=== PATIENT | male | born 1950 | race Caucasian/White ===

== ENCOUNTER 2023-01-12 14:47 | Emergency (ER) | payer MEDICARE, SELFPAY ==
[2023-01-12 15:01] VITALS: BP 123/84; PULSE 98; RESP 15; TEMP 36.8; O2SAT 99; BMI 25.8
[2023-01-12 16:49] LABS: Basophils % 0.3 %; Eosinophils # 0.1 10^3/uL (0.0-0.8); Eosinophils % 1.4 %; Hematocrit 39.4 % (42.0-52.0); Hemoglobin 14.4 g/dL (11.7-16.6); Lymphocytes # 0.7 10^3/uL (0.8-4.8); Lymphocytes % 11.3 %; Mean Corpuscular HGB Conc 36.5 g/dL (30.0-36.0); Mean Corpuscular Hemoglobin 32.7 pg (28.0-34.0); Mean Corpuscular Volume 89.3 fl (80-94); Monocytes # 0.7 10^3/uL (0.2-0.9); Monocytes % 11.8 %; Neutrophils # 4.39 10^3/uL (1.8-7.7); Neutrophils % 74.9 %; Nucleated Red Blood Cells % 0 %; Platelet Count 207 10^3/cmm (130-400); Red Blood Count 4.41 10^6/uL (4.1-5.3); Red Cell Distribution Width 11.7 % (12.1-15.1); White Blood Count 5.9 10^3/uL (4.0-10.0)
[2023-01-12 17:07] LABS: INR 0.89 (0.8-1.2)
--- NOTE | 2023-01-12 17:07 | ECG_ITS ---
[facility] Test Date: 2023-01-12 Pat Name: Ugo Stiles Department: Room: Gender: Male Soap Boiler: : 1950 Requested By: Polo Mcintosh Order Number: [id number] Dimple MD: Duane Hdez M.D. Measurements Intervals [place] Rate: 101 P: 59 MD: 124 QRS: 15 QRSD: 157 T: 24 QT: 433 QTc: 563 Interpretive Statements SINUS TACHYCARDIA RIGHT BUNDLE BRANCH BLOCK [120+ ms QRS DURATION, UPRIGHT V1, 40+ ms S IN I/aVL/V4/V5/V6] No previous ECG available for comparison Electronically Signed On 01-13-2023 18:14:55 MACHINED [employer]S METAL SPRAYER by Duane Hdez M.D. [id number]
--- NOTE | 2023-01-12 17:11 | DCPLANNER ---
Addendum entered by Darleen Hernández 01/14/23 13:12: 01-12-23 [facility] called back stating no beds [facility] - patients information was faxed at [phone] - declined due to his alcoholism [facility] - patients information was faxed at [phone] [facility] - patients information was faxed at [phone] Original Note: print manager was asked to look for [place] [facility] placement for patient. print manager called and faxed patients information to the following facilities looking for placement: [facility] - 1710 - [facility] - can fax information [facility] - 164 - Char[facility] - can fax information [facility] - patient to old [facility] - 171 - Malorie - can fax information [facility] - 171 - [place] - no beds [facility] - 171 - Ileana - can fax information - patient will be put on a waiting list [facility] - 1714 - Leonor - no beds [facility] - 1715 - Ele[place] -no beds [facility] - 171 - Jerana - no beds [facility] - 1717 - Pretty - no beds [facility] - 172 - no beds
[2023-01-12 17:25] LABS: Acetaminophen < 5.0 ug/mL (10-30); Alanine Aminotransferase 20 U/L (0-41); Albumin Level 4.2 g/dL (3.5-5.2); Alcohol Level < 10 mg/dL (0-10); Alkaline Phosphatase 90 U/L (40-130); Anion Gap 18.9 (5-19); Aspartate Amino Transferase 20 U/L (0-40); Blood Urea Nitrogen 11 mg/dL (8-23); Calcium 9.3 mg/dL (8.5-10.5); Carbon Dioxide 25 mmol/L (22-29); Chloride 95 mmol/L (98-107); Creatinine Clr Calc Pharmacy 81.8003; Globulin 2.5 g/dL (1.3-4.6); Glomerular Filtration Rate 111.5 mL/min (90-130); Glucose 86 mg/dL (65-115); Osmolality Calculated 279 mOsm/kg (285-295); Potassium 3.9 mmol/L (3.5-5.1); Salicylate < 0.3 mg/dL (3-10); Sodium 135 mmol/L (136-145); Thyroid Stimulating Hormone 2.11 uIU/mL (0.27-4.20); Total Bilirubin 0.6 mg/dL (0.15-1.2); Total Protein 6.7 g/dL (6.6-8.7)
--- NOTE | 2023-01-12 17:31 | ED.C_ITS ---
Documented by User: Polo Zuniga DO 01/15/23 14:27 HPI - Psych General: Chief Complaint: Psychiatric Symptoms Stated Complaint: psych eval Time Seen by Provider: 01/12/23 15:46 Source: patient Mode of arrival: ambulatory History of Present Illness: 72-year-old male who presents to the emergency room accompanied by 2 family members. Patient was incarcerated for the last 10 days for DWI. He does not seem to recall this to well. He has been having some auditory and visual hallucinations. He was on clonazepam and stopped taking it suddenly when he was incarcerated. He has not taken any for the last 10 days he is having hallucinations still today. He denies any homicidal or suicidal lissette ation. Patient cannot recall a lot of the details around where he was or why he was there. He admits to drinking denies any history of cirrhosis or upper GI bleeds. He has had multiple DUIs in the past. He states he only drinks 2-4 beers per night. Last drink was reported to have been 10 days ago. He had no tremors or withdrawal seizures when he stopped drinking. MD complaint: suicidal ideation Onset (ago): minute(s) Duration: constant History of same: Yes Relieving factors: none Exacerbating factors: none Associated psychiatric symptoms: depression, auditory hallucinations and visual hallucinations Associated symptoms: Reports auditory hallucinations and visual hallucinations Treatments prior to arrival: none Review of Systems Const: Denies: fever(s), chills, body aches, change in appetite, fatigue or malaise ENMT: Denies: throat pain, ear or mastoid pain, nasal discharge or nasal congestion Card: Denies: chest pain, edema, dyspnea on exertion or orthopnea Resp: Denies: dyspnea, productive cough or non-productive cough GI: Denies: abdominal pain, nausea, vomiting, hematemesis, coffee ground emesis, diarrhea, constipation, bloating, hematochezia or melena : Denies: flank pain, dysuria, urinary frequency or urinary urgency Skin/Breast: Denies: rash or pruritus Psych: Reports: visual hallucinations and auditory hallucinations [facility] ED PFSH: Social History (Updated 01/12/23 @ 17:36 by Polo Zuniga DO) Smoking and tobacco status: current every day smoker Alcohol intake: current Alcohol intake frequency: 3 or more drinks per day Physical Exam Const: GENERAL APPEARANCE: cooperative and comfortable ORIENTATION/CONSCIOUSNESS: Yes awake, Yes oriented to person, Yes oriented to place and Yes oriented to time HENMT: COMMON NORMALS: normocephalic, atraumatic and hearing grossly normal bilaterally HEAD & SCALP: normocephalic and atraumatic Resp: COMMON NORMALS: normal respiratory effort, No retractions, No use of accessory muscles and clear to auscultation bilaterally AUSCULTATION: clear to auscultation bilaterally Cardio: COMMON NORMALS: regular rate, regular rhythm and No murmurs present (Cardio) RATE: regular rate RHYTHM: regular rhythm GI: COMMON NORMALS: Soft to palpation and No hepatosplenomegaly present AUSCULTATION: Yes normoactive bowel sounds PALPATION: Yes Soft to palpation, No Tenderness to palpation present (GI), No Guarding due to palpation present (GI) and Yes No hepatosplenomegaly present Extremity: COMMON NORMALS: normal to inspection, capillary refill normal, no clubbing, cyanosis or edema, no calf tenderness and no pedal edema Neuro: SENSORIUM/ORIENTATION: Yes oriented to person, Yes oriented to place and Yes oriented to time Skin: COMMON NORMALS: no rashes or lesions noted GENERAL SKIN EXAM: no rashes or lesions noted Course Vital Signs: Vital signs: Vital Signs Temperature 97.6 F 01/13/23 23:03 Pulse Rate 112 H 01/15/23 09:02 Respiratory Rate 16 01/15/23 09:02 Blood Pressure 145/86 01/15/23 09:02 Pulse Oximetry 97 01/15/23 09:02 Oxygen Delivery Me thod 01/15/23 09:02 [facility] - Psych Medical Decision Making Patient is 10 days out from his last use of clonazepam or alcohol. No believe his symptoms are directly due to acute withdrawal he is through the delirium tremor portion of alcohol withdrawal at this point and has not had any seizures. I do think it is related to his long-term use of both medications and now he is having psychosis which may last for some time he should be restarted on some of his medications. We initially had begun looking for a place to transfer the patient to however several declined to take him. I talked to her psychiatrist that her psychiatrist see him he concurs there is an aspect of acute psychosis with delirium and he will require inpatient medication initiation please see his consultation report. Patient is excepted to [facility] likely transfer in the morning patient is medically cleared. Patient continues to have hallucinations but remains stable. [facility] in good condition. Medical Records I reviewed the patient's medical records. Lab Data I reviewed the patient's lab results. 01/12/23 16:35 01/12/23 16:35 Radiology Impressions Chest X-Ray 01/12/23 18:56 IMPRESSION: 1. Negative for infiltrate. 2. Right upper lobe benign pleural calcification. Laboratory Results WBC 5.9 10^3/uL (4.0-10.0) 01/12/23 16:35 RBC 4.41 10^6/uL (4.1-5.3) 01/12/23 16:35 Hgb 14.4 g/dL (11.7-16.6) 01/12/23 16:35 Hct 39.4 % (42.0-52.0) L 01/12/23 16:35 MCV 89.3 fl (80-94) 01/12/23 16:35 MCH 32.7 pg (28.0-34.0) 01/12/23 16:35 MCHC 36.5 g/dL (30.0-36.0) H 01/12/23 16:35 RDW 11.7 % (12.1-15.1) L 01/12/23 16:35 Plt Count 207 10^3/cmm (130-400) 01/12/23 16:35 MPV 10.0 fL (7.4-10.4) 01/12/23 16:35 Neut % (Auto) 74.9 % 01/12/23 16:35 Lymph % (Auto) 11.3 % 01/12/23 16:35 [place] % (Auto) 11.8 % 01/12/23 16:35 Eos % (Auto) 1.4 % 01/12/23 16:35 Baso % (Auto) 0.3 % 01/12/23 16:35 Neut # (Auto) 4.39 10^3/uL (1.8-7.7) 01/12/23 16:35 Lymph # (Auto) 0.7 10^3/uL (0.8-4.8) L 01/12/23 16:35 [place] # (Auto) 0.7 10^3/uL (0.2-0.9) 01/12/23 16:35 Eos # (Auto) 0.1 10^3/uL (0.0-0.8) 01/12/23 16:35 Baso # (Auto) 0.0 10^3/uL (0.0-0.1) 01/12/23 16:35 Nucleated RBC % (auto) 0 % 01/12/23 16:35 Nucleated RBCs # 0.0 /100WBC 01/12/23 16:35 PT 12.40 SECONDS (12.1-14.9) 01/12/23 16:35 INR 0.89 (0.8-1.2) 01/12/23 16:35 Sodium 135 mmol/L (136-145) L 01/12/23 16:35 Potassium 3.9 mmol/L (3.5-5.1) 01/12/23 16:35 Chloride 95 mmol/L (98-107) L 01/12/23 16:35 Carbon Dioxide 25 mmol/L (22-29) 01/12/23 16:35 Anion Gap 18.9 (5-19) 01/12/23 16:35 BUN 11 mg/dL (8-23) 01/12/23 16:35 Creatinine 0.7 mg/dL (0.7-1.2) 01/12/23 16:35 GFR Calculation 111.5 mL/min (90-130) 01/12/23 16:35 Glucose 86 mg/dL (65-115) 01/12/23 16:35 Calculated Osmolality 279 mOsm/kg (285-295) L 01/12/23 16:35 Calcium 9.3 mg/dL (8.5-10.5) 01/12/23 16:35 Total Bilirubin 0.6 mg/dL (0.15-1.2) 01/12/23 16:35 AST 20 U/L (0-40) 01/12/23 16:35 ALT 20 U/L (0-41) 01/12/23 16:35 Alkaline Phosphatase 90 U/L (40-130) 01/12/23 16:35 Total Protein 6.7 g/dL (6.6-8.7) 01/12/23 16:35 Albumin 4.2 g/dL (3.5-5.2) 01/12/23 16:35 Globulin 2.5 g/dL (1.3-4.6) 01/12/23 16:35 TSH 2.11 uIU/mL (0.27-4.20) 01/12/23 16:35 Free T4 1.48 ng/dL (0.82-1.77) 01/12/23 16:03 Free T3 2.6 PG/ML (2.0-4.4) 01/12/23 16:03 Urine Color Yellow (Yellow) 01/12/23 19:46 Urine Appearance Clear (CLEAR) 01/12/23 19:46 Urine pH 6 (5-7) 01/12/23 19:46 Ur Specific [place] 1.025 (1.005-1.030) 01/12/23 19:46 Urine Protein Trace (Negative) 01/12/23 19:46 Urine Glucose (UA) Norm (Normal) 01/12/23 19:46 Urine Ketones 2+ (Negative) H 01/12/23 19:46 Urine Blood Neg (Negative) 01/12/23 19:46 Urine Nitrate Negative (Negative) 01/12/23 19:46 Urine Bilirubin 1+ (Negative) H 01/12/23 19:46 Urine Urobilinogen 1 mg/dL (Negative) H 01/12/23 19:46 Ur Leukocyte Esterase Negative (Negative) 01/12/23 19:46 Urine RBC 0-4 /hpf (0-2) H 01/12/23 19:46 Urine WBC 0-4 /hpf (0-5) H 01/12/23 19:46 Ur Squamous Epith Cells 0-4 /hpf (0-5) H 01/12/23 19:46 Calcium Oxalate Crystal 1 /hpf 01/12/23 19:46 Amorphous Sediment Not Reportable 01/12/23 19:46 Urine Bacteria 1+ /hpf (NONE) H 01/12/23 19:46 Urine Mucus 1+ /hpf 01/12/23 19:46 Urine Sperm 2+ /hpf 01/12/23 19:46 Nasal Influ A H1 2008 PCR Not detected (NOT DETECT) 01/14/23 23:33 Salicylates < 0.3 mg/dL (3-10) L 01/12/23 16:35 Urine Opiates Screen Negative ng/mL (Negative) 01/12/23 19:46 Acetaminophen < 5.0 ug/mL (10-30) L 01/12/23 16:35 Ur Barbiturates Screen Negative ng/mL (Negative) 01/12/23 19:46 Ur Phencyclidine Scrn Negative ng/mL (Negative) 01/12/23 19:46 Ur Amphetamines Screen Negative ng/mL (Negative) 01/12/23 19:46 U Benzodiazepines Scrn Negative ng/mL (Negative) 01/12/23 19:46 Urine Cocaine Screen Negative ng/mL (Negative) 01/12/23 19:46 U Marijuana (THC) Screen Negative ng/mL (Negative) 01/12/23 19:46 Ethyl Alcohol < 10 mg/dL (0-10) 01/12/23 16:35 Adenovirus (PCR) Not detected (NOT DETECT) 01/14/23 23:33 C. pneumoniae DNA (PCR) Not detected (NOT DETECT) 01/14/23 23:33 Coronavirus 229E (PCR) Detected (NOT DETECT) A 01/14/23 23:33 Human Metapneumovir PCR Not detected (NOT DETECT) 01/14/23 23:33 Influenza A (H1) PCR Not detected (NOT DETECT) 01/14/23 23:33 Influenza A (H3) PCR Not detected (NOT DETECT) 01/14/23 23:33 Influenza Type A Ag negative (Negative) 01/12/23 17:21 Influenza Type A (PCR) Not detected (NOT DETECT) 01/14/23 23:33 Influenza Type B Ag negative (Negative) 01/12/23 17:21 Influenza Type B (PCR) Not detected (NOT DETECT) 01/14/23 23:33 M. pneumoniae (PCR) Not detected (NOT DETECT) 01/14/23 23:33 Parainfluenza 1 (PCR) Not detected (NOT DETECT) 01/14/23 23:33 Parainfluenza 2 (PCR) Not detected (NOT DETECT) 01/14/23 23:33 Parainfluenza 3 (PCR) Not detected (NOT DETECT) 01/14/23 23:33 Parainfluenza 4 (PCR) Not detected (NOT DETECT) 01/14/23 23:33 RSV Type A (PCR) Not detected (NOT DETECT) 01/14/23 23:33 RSV Type B (PCR) Not detected (NOT DETECT) 01/14/23 23:33 Entero/Rhino (PCR) Not detected (NOT DETECT) 01/14/23 23:33 SARS-CoV-2 (PCR) Not detected (NOT DETECT) 01/14/23 23:33 SARS-CoV-2 Ag (Rapid) negative (Negative) 01/12/23 17:21 Discharge Plan Discharge Patient Disposition: Xfer Psychiatric Hosp Clinical Impression: Suicidal ideation, Acute psychosis Referrals: Lien Henning MD [Primary Care Provider] - Coding Level of Care Code ED Hardware Developer for Chg Fwd Documented by User: Brigida Logan MD 01/15/23 03:28 HPI - Psych General: Chief Complaint: Psychiatric Symptoms Stated Complaint: psych eval Time Seen by Provider: 01/12/23 15:46 PFSH ED PFSH: Social History (Updated 01/12/23 @ 17:36 by Polo Zuniga DO) Smoking and tobacco status: current every day smoker Alcohol intake: current Alcohol intake frequency: 3 or more drinks per day Course Vital Signs: Vital signs: Vital Signs Temperature 97.6 F 01/13/23 23:03 Pulse Rate 112 H 01/15/23 09:02 Respiratory Rate 16 01/15/23 09:02 Blood Pressure 145/86 01/15/23 09:02 Pulse Oximetry 97 01/15/23 09:02 Oxygen Delivery Me thod 01/15/23 09:02 MDM - Psych Medical Decision Making Patient is 10 days out from his last use of clonazepam or alcohol. No believe his symptoms are directly due to acute withdrawal he is through the delirium tremor portion of alcohol withdrawal at this point and has not had any seizures. I do think it is related to his long-term use of both medications and now he is having psychosis which may last for some time he should be restarted on some of his medications. We initially had begun looking for a place to transfer the patient to however several declined to take him. I talked to her psychiatrist that her psychiatrist see him he concurs there is an aspect of acute psychosis with delirium and he will require inpatient medication initiation please see his consultation report. Patient is excepted to [facility] likely transfer in the morning patient is med ically cleared. Lab Data 01/12/23 16:35 01/12/23 16:35 Radiology Impressions Chest X-Ray 01/12/23 18:56 IMPRESSION: 1. Negative for infiltrate. 2. Right upper lobe benign pleural calcification. Laboratory Results WBC 5.9 10^3/uL (4.0-10.0) 01/12/23 16:35 RBC 4.41 10^6/uL (4.1-5.3) 01/12/23 16:35 Hgb 14.4 g/dL (11.7-16.6) 01/12/23 16:35 Hct 39.4 % (42.0-52.0) L 01/12/23 16:35 MCV 89.3 fl (80-94) 01/12/23 16:35 MCH 32.7 pg (28.0-34.0) 01/12/23 16:35 MCHC 36.5 g/dL (30.0-36.0) H 01/12/23 16:35 RDW 11.7 % (12.1-15.1) L 01/12/23 16:35 Plt Count 207 10^3/cmm (130-400) 01/12/23 16:35 MPV 10.0 fL (7.4-10.4) 01/12/23 16:35 Neut % (Auto) 74.9 % 01/12/23 16:35 Lymph % (Auto) 11.3 % 01/12/23 16:35 [place] % (Auto) 11.8 % 01/12/23 16:35 Eos % (Auto) 1.4 % 01/12/23 16:35 Baso % (Auto) 0.3 % 01/12/23 16:35 Neut # (Auto) 4.39 10^3/uL (1.8-7.7) 01/12/23 16:35 Lymph # (Auto) 0.7 10^3/uL (0.8-4.8) L 01/12/23 16:35 [place] # (Auto) 0.7 10^3/uL (0.2-0.9) 01/12/23 16:35 Eos # (Auto) 0.1 10^3/uL (0.0-0.8) 01/12/23 16:35 Baso # (Auto) 0.0 10^3/uL (0.0-0.1) 01/12/23 16:35 Nucleated RBC % (auto) 0 % 01/12/23 16:35 Nucleated RBCs # 0.0 /100WBC 01/12/23 16:35 PT 12.40 SECONDS (12.1-14.9) 01/12/23 16:35 INR 0.89 (0.8-1.2) 01/12/23 16:35 Sodium 135 mmol/L (136-145) L 01/12/23 16:35 Potassium 3.9 mmol/L (3.5-5.1) 01/12/23 16:35 Chloride 95 mmol/L (98-107) L 01/12/23 16:35 Carbon Dioxide 25 mmol/L (22-29) 01/12/23 16:35 Anion Gap 18.9 (5-19) 01/12/23 16:35 BUN 11 mg/dL (8-23) 01/12/23 16:35 Creatinine 0.7 mg/dL (0.7-1.2) 01/12/23 16:35 GFR Calculation 111.5 mL/min (90-130) 01/12/23 16:35 Glucose 86 mg/dL (65-115) 01/12/23 16:35 Calculated Osmolality 279 mOsm/kg (285-295) L 01/12/23 16:35 Calcium 9.3 mg/dL (8.5-10.5) 01/12/23 16:35 Total Bilirubin 0.6 mg/dL (0.15-1.2) 01/12/23 16:35 AST 20 U/L (0-40) 01/12/23 16:35 ALT 20 U/L (0-41) 01/12/23 16:35 Alkaline Phosphatase 90 U/L (40-130) 01/12/23 16:35 Total Protein 6.7 g/dL (6.6-8.7) 01/12/23 16:35 Albumin 4.2 g/dL (3.5-5.2) 01/12/23 16:35 Globulin 2.5 g/dL (1.3-4.6) 01/12/23 16:35 TSH 2.11 uIU/mL (0.27-4.20) 01/12/23 16:35 Free T4 1.48 ng/dL (0.82-1.77) 01/12/23 16:03 Free T3 2.6 PG/ML (2.0-4.4) 01/12/23 16:03 Urine Color Yellow (Yellow) 01/12/23 19:46 Urine Appearance Clear (CLEAR) 01/12/23 19:46 Urine pH 6 (5-7) 01/12/23 19:46 Ur Specific [place] 1.025 (1.005-1.030) 01/12/23 19:46 Urine Protein Trace (Negative) 01/12/23 19:46 Urine Glucose (UA) Norm (Normal) 01/12/23 19:46 Urine Ketones 2+ (Negative) H 01/12/23 19:46 Urine Blood Neg (Negative) 01/12/23 19:46 Urine Nitrate Negative (Negative) 01/12/23 19:46 Urine Bilirubin 1+ (Negative) H 01/12/23 19:46 Urine Urobilinogen 1 mg/dL (Negative) H 01/12/23 19:46 Ur Leukocyte Esterase Negative (Negative) 01/12/23 19:46 Urine RBC 0-4 /hpf (0-2) H 01/12/23 19:46 Urine WBC 0-4 /hpf (0-5) H 01/12/23 19:46 Ur Squamous Epith Cells 0-4 /hpf (0-5) H 01/12/23 19:46 Calcium Oxalate Crystal 1 /hpf 01/12/23 19:46 Amorphous Sediment Not Reportable 01/12/23 19:46 Urine Bacteria 1+ /hpf (NONE) H 01/12/23 19:46 Urine Mucus 1+ /hpf 01/12/23 19:46 Urine Sperm 2+ /hpf 01/12/23 19:46 Nasal Influ A H1 2008 PCR Not detected (NOT DETECT) 01/14/23 23:33 Salicylates < 0.3 mg/dL (3-10) L 01/12/23 16:35 Urine Opiates Screen Negative ng/mL (Negative) 01/12/23 19:46 Acetaminophen < 5.0 ug/mL (10-30) L 01/12/23 16:35 Ur Barbiturates Screen Negative ng/mL (Negative) 01/12/23 19:46 Ur Phencyclidine Scrn Negative ng/mL (Negative) 01/12/23 19:46 Ur Amphetamines Screen Negative ng/mL (Negative) 01/12/23 19:46 U Benzodiazepines Scrn Negative ng/mL (Negative) 01/12/23 19:46 Urine Cocaine Screen Negative ng/mL (Negative) 01/12/23 19:46 U Marijuana (THC) Screen Negative ng/mL (Negative) 01/12/23 19:46 Ethyl Alcohol < 10 mg/dL (0-10) 01/12/23 16:35 Adenovirus (PCR) Not detected (NOT DETECT) 01/14/23 23:33 C. pneumoniae DNA (PCR) Not detected (NOT DETECT) 01/14/23 23:33 Coronavirus 229E (PCR) Detected (NOT DETECT) A 01/14/23 23: Human Metapneumovir PCR Not detected (NOT DETECT) 01/14/23 23:33 Influenza A (H1) PCR Not detected (NOT DETECT) 01/14/23 23:33 Influenza A (H3) PCR Not detected (NOT DETECT) 01/14/23 23:33 Influenza Type A Ag negative (Negative) 01/12/23 17:21 Influenza Type A (PCR) Not detected (NOT DETECT) 01/14/23 23:33 Influenza Type B Ag negative (Negative) 01/12/23 17:21 Influenza Type B (PCR) Not detected (NOT DETECT) 01/14/23 23:33 M. pneumoniae (PCR) Not detected (NOT DETECT) 01/14/23 23:33 Parainfluenza 1 (PCR) Not detected (NOT DETECT) 01/14/23 23:33 Parainfluenza 2 (PCR) Not detected (NOT DETECT) 01/14/23 23:33 Parainfluenza 3 (PCR) Not detected (NOT DETECT) 01/14/23 23:33 Parainfluenza 4 (PCR) Not detected (NOT DETECT) 01/14/23 23:33 RSV Type A (PCR) Not detected (NOT DETECT) 01/14/23 23:33 RSV Type B (PCR) Not detected (NOT DETECT) 01/14/23 23:33 Entero/Rhino (PCR) Not detected (NOT DETECT) 01/14/23 23:33 SARS-CoV-2 (PCR) Not detected (NOT DETECT) 01/14/23 23:33 SARS-CoV-2 Ag (Rapid) negative (Negative) 01/12/23 17:21 Discharge Plan Discharge Patient Disposition: Xfer Psychiatric Hosp Clinical Impression: Suicidal ideation, Acute psychosis Referrals: Lien Henning MD [Primary Care Provider] - Coding Level of Care Code ED Hardware Developer for Kevyn De Leon
[2023-01-12 18:09] LABS: Influenza A by IFA negative (Negative); Influenza B by IFA negative (Negative)
[2023-01-12 18:10] LABS: SARS Covid-2 Antigen negative (Negative)
--- NOTE | 2023-01-12 18:56 | XRR_ITS ---
PROCEDURE INFORMATION: Exam: XR Chest Exam date and time: 01/12/2023 7:02 PM Age: 72 years old Clinical indication: Injury or trauma; Other: Psych TECHNIQUE: Imaging protocol: Radiologic exam of the chest. Views: 1 view. COMPARISON: No relevant prior studies available. FINDINGS: Lungs: Right upper lobe benign pleural calcification. Pleural spaces: See Lungs finding. Heart/Mediastinum: Unremarkable. No cardiomegaly. Bones/joints: Unremarkable. XR/XR chest 1V portable [id number] IMPRESSION: 1. Negative for infiltrate. 2. Right upper lobe benign pleural calcification.
[2023-01-12 20:05] LABS: Amphetamines Screen Urine Negative (Negative); Barbiturates Screen Urine Negative (Negative); Benzodiazepines Screen Urine Negative (Negative); Cocaine Screen Urine Negative (Negative); Opiate Screen Urine Negative (Negative); PCP Screen Urine Negative (Negative); THC Screen Urine Negative (Negative)
[2023-01-12 20:06] VITALS: BP 134/78; PULSE 91; RESP 18; TEMP 36.9; O2SAT 95
[2023-01-12 20:11] LABS: Free T4 Free Thyroxine 1.48 ng/dL (0.82-1.77); T3 Free 2.6 PG/ML (2.0-4.4)
[2023-01-12 20:45] LABS: Blood Urine Neg (Negative); Glucose Urine UA Norm (Normal); Leukocyte Esterase Urine Negative (Negative); Nitrate Urine Negative (Negative); Protein Urine Trace (Negative); Specific Gravity, Urine 1.025 (1.005-1.030); Urine Appearance Clear (CLEAR); Urine Color Yellow (Yellow); pH Urine 6 (5-7)
[2023-01-12 20:47] LABS: Bilirubin Urine 1+ (Negative); Ketones Urine 2+ (Negative); Urobilinogen Urine 1 mg/dL (Negative)
[2023-01-12 20:48] LABS: Add Urine Microscopic? YES
[2023-01-12 20:49] LABS: RBC Urine 0-4 /hpf (0-2); WBC Urine 0-4 /hpf (0-5)
[2023-01-12 20:50] LABS: Bacteria Urine 1+ /hpf; Calcium Oxalate Crystals Urine 1 /hpf; Mucus Urine 1+ /hpf; Squamous Epithelial Cell Urine 0-4 /hpf (0-5)
[2023-01-12 20:51] LABS: Sperm Urine 2+ /hpf
[2023-01-12 22:00] VITALS: RESP 20
[2023-01-13] MEDS: lidocaine 2% viscous 15 ML, aluminum-mag hydrox-simethicon 30 ML, sucralfate oral liq 1 GM PO ×2 (00:38→23:12)
[2023-01-13] MEDS: LORazepam 1 mg Tablet PO (00:39)
[2023-01-13] MEDS: OLANZapine 10 mg TABLET PO (00:57)
--- NOTE | 2023-01-13 02:03 | PC.NURSE ---
Patient left his room walking past sitter @ 2200. Walked around ER nurses station before he could be coaxed back into his room. Pt states that he needs someone to watch him because someone is going to jump him . When asked for clarification, he indicated the sitter and the patient in the room next to him. Provider made aware. Pt then made a second attempt to leave the room requiring staff to redirect him back in. Pt still thinks that he going to be jumped by the sitter. Explained to the patient that this is not the case and that he is just doing his job. Pt Refuses to stay in the room on the bed/ chair. Pt sitting in a chair in the doorway of ER room.
--- NOTE | 2023-01-13 03:00 | PC.NURSE ---
Patient still pacing the room, constantly fidgeting with his blankets, yelling at the corner of the room about stealing his belongings. Provider informed and medication order placed.
[2023-01-13] MEDS: haloperidol 5 mg Tablet PO (03:36)
[2023-01-13] MEDS: LORazepam 2 mg Tablet PO (03:36)
[2023-01-13 06:00] VITALS: BP 124/69; PULSE 99; RESP 18; O2SAT 97
--- NOTE | 2023-01-13 08:11 | DCPLANNER ---
I called [facility] at [facility] in [place], [place] I spoke with Will who said s:he will have the psychiatrist review the chart and will call us back. They do have 1 male bed available. Will will call back with an answer. I called at 08:12 am
[2023-01-13] MEDS: CLONazepam 0.5 mg Tablet PO (09:52)
--- NOTE | 2023-01-13 10:05 | PC.NURSE ---
Patient came out of his room and is trying to wander around the ED. Patient is directed back to his room.
--- NOTE | 2023-01-13 12:13 | PC.PHAR ---
pt unable to verify due to ams- meds verified using external med list last filled
--- NOTE | 2023-01-13 12:31 | DCPLANNER ---
jasen delgado called back. no beds available Kang collins
[2023-01-13 15:56] VITALS: O2SAT 97
--- NOTE | 2023-01-13 16:21 | P.NPUCON_ITS ---
Providers/Reason for Consult Consulting Physican/Specialty*: Aurelio Kaur MD. Psychiatry. Reason for Consult*: Altered mental status Primary Care Provider: Lien Henning MD Psych Consult HPI History of Present Illness Ugo Stiles is a 72 year old male who presented to the emergency department with the following report: 72-year-old male who presents to the emergency room accompanied by 2 family members. Patient was incarcerated for the last 10 days for DWI. He does not seem to recall this to well. He has been having some auditory and visual hallucinations. He was on clonazepam and stopped taking it suddenly when he was incarcerated. He has not taken any for the last 10 days he is having hallucinations still today. He denies any homicidal or suicidal ideation. Patient cannot recall a lot of the details around where he was or why he was there. He admits to drinking denies any history of cirrhosis or upper GI bleeds. He has had multiple DUIs in the past. He states he only drinks 2-4 beers per night. Last drink was reported to have been 10 days ago. He had no tremors or withdrawal seizures when he stopped drinking. MD complaint: suicidal ideation Onset (ago): minute(s) Duration: constant History of same: Yes Relieving factors: none Exacerbating factors: none Associated psychiatric symptoms: depression, auditory hallucinations and visual hallucinations Associated symptoms: Reports auditory hallucinations and visual hallucinations Treatments prior to arrival: none. Concerns for need for psychiatric treatment led to a psychiatric consult. Patient presents today with intermittent behavioral patterns. Currently he is fairly out of it and not responsive having received some small dose benzod iazepines. He is having no autonomic dysregulation. His blood pressures have been stable. His pulse has been within normal range. And he is not having any breathing difficulty, diaphoresis or shakiness, tremulousness, unsteadiness. Discussed this case with the treatment team/staff he has been with. They report that he has periods of lucidity where he is reporting no suicidal or homicidal ideation, but being clear that he is having auditory and visual hallucinations. During this time he is having no unsteady gait, dizziness or other indicators that he is having active benzodiazepine/alcohol/ALVERTO agent withdrawal. We discussed the fact that this likely represents delirium/hallucination s/confusion/altered mental status that is related to having benzodiazepines but not related to delirium tremens or active withdrawal. He did not report not drinking many beers and taking a fairly low dose of Klonopin prior to being cut off abruptly. Meds Home Medications and Allergies Home Medications Medication Instructions Recorded Confirmed Last Taken Type bupropion HCl 150 mg 24 hr tablet, 150 mg PO DAILY 01/13/23 01/13/23 Unknown History extended release clonazepam 0.5 mg tablet 1 mg PO BID 01/13/23 01/13/23 Unknown History escitalopram oxalate 20 mg tablet 20 mg PO DAILY 01/13/23 01/13/23 Unknown History imipramine HCl 50 mg tablet 50 mg PO QID 01/13/23 01/13/23 Unknown History Allergies Allergy/AdvReac Type Severity Reaction Status Date / Time No Known Allergies Allergy Verified 01/12/23 15:06 PFSH NPU PFSH: Social History (Updated 01/12/23 @ 17:36 by Polo Zuniga DO) Smoking and tobacco status: current every day smoker Alcohol intake: current Alcohol intake frequency: 3 or more drinks per day Mental Status Exam MSE Comments: This is a well-nourished well-developed older white male with limited grooming and eye contact. No abnormal movements except for intermittent psychomotor retardation and psychomotor agitation with his hallucinations. Speech is limited but frenetic when alert at times mood not described affect confused. Thought process linear but at times disorganized. Thought content: Patient did not report suicidal or homicidal ideation, there were no delusions reported but some bizarre thinking noted, he did not report auditory or visual hallucinations but clearly demonstrating active hallucinations. Attention and concentration impaired and memory unreliable but none were formally tested. He is alert and oriented to person and at times place. Insight, judgment and impulse control impaired. Vitals/I&O/Wt Last Vital Signs Temp 97.6 F 01/13/23 23:03 Pulse 111 H 01/13/23 23:03 Resp 14 01/13/23 23:03 BP 146/89 01/13/23 23:03 Pulse Ox 97 01/13/23 23:03 O2 Del Method 01/13/23 23:03 Weight last 48 hrs Weight 72.575 kg Data NPU 01/12/23 16:35 01/12/23 16:35 A&P Assessment and plan (1) Suicidal ideation: (2) Alcohol withdrawal: (3) Benzodiazepine withdrawal: (4) Delirium: Plan This is a 72-year-old white male with a history of alcohol and benzodiazepine use who presents about 10 days post use with no overt signs of significant withdrawal but lingering hallucinations. 1. Continue current medications. 2. Patient is beyond the timeframe for acute withdrawal from alcohol/benzodiazepine/ALVERTO agents with continued hallucinations that likely are a sequela of his abuse of ALVERTO agents but not a reflection of acute withdrawal/delirium tremens. 3. Agree with acute inpatient geriatric evaluation for appropriate treatment. Attestations NPU Medical Necessity Statement*: N/A. Please see primary provider note for medical necessity but agree with need for inpatient psychiatric services to manage persistent hallucinations. Coding Level of Care Code Acute Code for [facility] Fwd Diagnoses Suicidal ideation R45.851 Alcohol withdrawal F10.939 Benzodiazepine withdrawal F13.939 Delirium R41.0
[2023-01-13 23:03] VITALS: BP 146/89; PULSE 111; RESP 14; TEMP 36.4; O2SAT 97
[2023-01-14] MEDS: lidocaine 2% viscous 15 ML, aluminum-mag hydrox-simethicon 30 ML, sucralfate oral liq 1 GM PO (08:43)
[2023-01-14] MEDS: famotidine 20 mg Tablet PO (08:45)
[2023-01-14 08:46] VITALS: PULSE 82; O2SAT 98
[2023-01-14] MEDS: CLONazepam 0.5 mg Tablet 0.25 MG PO (09:27)
--- NOTE | 2023-01-14 12:58 | PC.NURSE ---
PT resting in bed quietly. pt has been calm and cooperative.
--- NOTE | 2023-01-14 13:14 | DCPLANNER ---
Addendum entered by Darleen Hernández 01/16/23 11:06: Patient was accepted at [facility] Addendum entered by Darleen Hernández 01/14/23 13:27: Patients information was faxed to the following facilities: [place]: [address] [place] - faxed at [phone] [facility] - faxed at [address] [place] - faxed 1322 [facility] - faxed at [phone] Original Note: banking center manager was asked to call [place] [facility] for patient. banking center manager called and faxed patients information to the following facilities: [facility] - 1126 - [place] - can fax [place] - 1129 - [place] - can fax [facility] - 1131 - left voicemail [facility] - patient is to old for facility [facility] - 1137 - can fax [place] - [place] - no beds at this time, but was told to fax patients information for review. [facility] - 1146 - [place] - no beds [facility] - 1147 - [place] - no beds [facility] - 1148 - [place] - no beds [facility] - 1151 - [place] - no beds [facility] - 1153 - [place] - can fax patients information.
[2023-01-14 13:22] VITALS: BP 125/78; PULSE 111; RESP 18; O2SAT 96
--- NOTE | 2023-01-14 13:30 | P.NPUPN_ITS ---
Subjective NPU Subjective: Patient presented today much more alert and active for conversation. He continues to deny feelings of tremulousness, jitteriness ataxia or imbalance. He continues to lack any signs of those symptoms. He continues to report a very small amount of Klonopin use and 2-4 beers a day prior to being cut off secondary to incarceration. We discussed the fact that the hallucinations that he did report likely represented delirium and confusion secondary to the abrupt removal of those medications and or alcohol but did not represent DTs with the autonomic disturbance. We discussed the fact that we felt he probably needed some observation in an inpatient psychiatric facility. Mental Status Exam MSE Comments: This is a well-nourished well-developed older white male with limited grooming and eye contact. No abnormal movements except form mild psychomotor retardation . Speech is more normal rate and volume. Thought process linear but at times organized. Thought content: Patient did not report suicidal or homicidal ideation, there were no delusions reported or noted, he did not report auditory and/or visual hallucinations. Attention and concentration limited and memory more reliable but none were formally tested. He is alert and oriented to person and at times place. Insight, judgment and impulse control impaired. Vitals/I&O/Wt Last Vital Signs Temp 97.6 F 01/13/23 23:03 Pulse 111 H 01/14/23 13:22 Resp 18 01/14/23 13:22 BP 125/78 01/14/23 13:22 Pulse Ox 96 01/14/23 13:22 O2 Del Method 01/14/23 13:22 Weight last 48 hrs Weight 72.575 kg Data NPU 01/12/23 16:35 01/12/23 16:35 A&P Assessment and plan (1) Suicidal ideation: (2) Alcohol withdrawal: (3) Benzodiazepine withdrawal: (4) Delirium: Plan This is a 72-year-old white male with a history of alcohol and benzodiazepine use who presents about 10 days post use with no overt signs of significant withdrawal but lingering hallucinations. 1. Continue current medications. 2. Patient is beyond the timeframe for acute withdrawal from alcohol/benzodiazepine/ALVERTO agents with continued hallucinations that likely are a sequela of his abuse of ALVERTO agents but not a reflection of acute withdrawal/delirium tremens. He has continued improvement, autonomic stability but continued hallucinations. 3. Agree with acute inpatient geriatric evaluation for appropriate treatment. Attestations NPU Medical Necessity Statement*: N/A. Please see primary provider note for medical necessity but agree with need for inpatient psychiatric services to manage persistent hallucinations. Coding Level of Care Code Acute Code for [facility] Fwd Diagnoses Suicidal ideation R45.851 Alcohol withdrawal F10.939 Benzodiazepine withdrawal F13.939 Delirium R41.0
--- NOTE | 2023-01-14 15:20 | PC.NURSE ---
pt taken by security and tech to C[facility] floor so he could take a shower
[2023-01-14 22:40] VITALS: BP 132/71; PULSE 101; RESP 16; O2SAT 100
--- NOTE | 2023-01-14 23:15 | PC.NURSE ---
Assumed patient care from ,
[2023-01-15 01:42] LABS: Adenovirus Not Detected (NOT DETECT); Chlamydia Pneumoniae Not Detected (NOT DETECT); Coronavirus 229E,HKU1,NL63,OC4 Detected (NOT DETECT); Human Metapneumovirus Not Detected (NOT DETECT); Human Rhinovirus/Enterovirus Not Detected (NOT DETECT); Influenza A Not Detected (NOT DETECT); Influenza A H1 Not Detected (NOT DETECT); Influenza A H1-2009 Not Detected (NOT DETECT); Influenza A H3 Not Detected (NOT DETECT); Influenza B Not Detected (NOT DETECT); Mycoplasma Pneumoniae Not Detected (NOT DETECT); Parainfluenza Virus Type 1 Not Detected (NOT DETECT); Parainfluenza Virus Type 2 Not Detected (NOT DETECT); Parainfluenza Virus Type 3 Not Detected (NOT DETECT); Parainfluenza Virus Type 4 Not Detected (NOT DETECT); Respiratory Syncytial Virus A Not Detected (NOT DETECT); Respiratory Syncytial Virus B Not Detected (NOT DETECT); SARS-COV-2 Not Detected (NOT DETECT)
[2023-01-15] MEDS: CLONazepam 1 mg Tablet PO (04:02)
--- NOTE | 2023-01-15 04:06 | PC.NURSE ---
pt is awake in his room - making his bed. Updated pt on his plan for this morning of going to [facility] - pt states he does not feel safe and is wanting his klonopin. Pt given 1mg of klonopin. He remains calm and cooperative with staff. He states he is going to lay back down now that he has had some water and his medication. PSA sitter remains at bedside.
[2023-01-15 09:02] VITALS: BP 145/86; PULSE 112; RESP 16; O2SAT 97
--- NOTE | 2023-01-15 10:10 | PC.NURSE ---
report called to garth coe at [facility]
== END 2023-01-15 12:51 ==
PROVIDERS: Emergency Medicine; Family Medicine; Emergency Provider Emergency Medicine; PCP Family Medicine
DX: F23 Brief psychotic disorder (principal); R45.851 Suicidal ideations; F17.210 Nicotine dependence, cigarettes, uncomplicated; Z20.822 Contact with and (suspected) exposure to COVID-19
CPT/HCPCS: 36415; 71045; 80053; 80306; 80307; 81001; 84439; 84443; 84481; 85025; 85610; 87426; 87486; 87581; 87633; 87804; 93005; 99285; Q3014